=== PATIENT | male | born 1945 | race Caucasian/White ===

== ENCOUNTER 2024-06-17 16:18 | Emergency (ER) | payer MEDICARE, OTHER, SELFPAY ==
[2024-06-17] VITALS (8 sets, daily range): BP systolic 154–184; BP diastolic 90–117; BMI 35.7
[2024-06-17 16:46] LABS: % Basophils 0.3 % (0-2); % Eosinophils 2.4 % (0-6); % Immature Granulocytes 0.4 % (0-0.5); % Lymphocytes 21.7 % (20.5-51.1); % Monocytes 8.9 % (1.7-9.3); % Neutrophils 66.3 % (42.2-75.2); Absolute Basophils 0.1 10^3/uL (0-0.2); Absolute Eosinophils 0.4 10^3/uL (0-0.7); Absolute Immature Granulocytes 0.1 10^3/uL (0-0.05); Absolute Lymphocytes 3.7 10^3/uL (1.2-3.4); Absolute Monocytes 1.5 10^3/uL (0.1-0.6); Absolute Neutrophils 11.3 10^3/uL (1.4-6.5); Hematocrit 42.2 % (39.0-52.0); Hemoglobin 15.1 g/dL (13.0-18.0); Mean Corp Hgb Conc. 35.8 g/dL (33.0-37.0); Mean Corpuscular Hgb 30.1 pg (27.0-31.0); Mean Corpuscular Volume 84.1 fL (80.0-94.0); Mean Platelet Volume 9.5 fL (7.4-10.4); Nucleated Red Blood Cells % 0 % (-); Platelet Count 283 10^3/uL (130-400); Red Blood Cell Count 5.02 10^6/uL (4.70-6.10); Red Cell Dist. Width 12.3 % (11.5-14.5)
[2024-06-17 17:04] LABS: ALT (SGPT) 26 U/L (0-50); AST (SGOT) 26 U/L (17-59); Albumin 4.7 g/dl (3.5-5.0); Alkaline Phosphatase 97 U/L (38-126); Blood Urea Nitrogen 15 mg/dl (9-20); Calcium 9.5 mg/dl (8.4-10.2); Carbon Dioxide 23 mmol/L (22-30); Chloride 103 mmol/L (98-107); Estimated Creatinine Clearance 89 ml/min; Glucose 115 mg/dl (70-99); Potassium 4.3 mmol/L (3.5-5.1); Sodium 136 mmol/L (135-145); Total Bilirubin 1.5 mg/dl (0.2-1.3); Total Protein 7.6 g/dl (6.3-8.2); eGFR > 60.00
[2024-06-17 17:09] LABS: Troponin I < 0.012 ng/ml
[2024-06-17 20:24] LABS: Lipase 121 U/L (23-300)
--- NOTE | 2024-06-17 21:22 | ED.GENMED ---
History of Present Illness
General
Chief Complaint: Blood Pressure Problem
Source: patient
Exam Limitations: none
Time Seen by Provider: 06/17/24 17:53
Nursing documentation reviewed up to this point in time: agreed with
History of Present Illness
History of Present Illness:
Patient presents to ED secondary to persistent bloating sensation and pressure of his abdomen since yesterday afternoon. When his blood pressure was checked at this afternoon, it was noted to be high. Abdominal pain described as pressure,
nonradiating, with intermittent nausea sensation without vomiting. Denies alleviating or exacerbating factors. Denies recent change in diet. Denies recent illness. Denies fever or chills. Denies previous history of similar symptoms. Denies
change in bowel habits.
Past History
Past History
ED Past Medical History: CAD and HTN; Negative Arrthythmia or Asthma
ED Past Surgical History: Cardiac and Orthopedic (knee sx 5 year); Negative Appendectomy, Bowel resection, Brain, Cholecystectomy or
Social History
Tobacco: Former smoker
Alcohol: Occasional
Drug: None
Personal:
Living: with family
Employment: Employed
Family History
Family History: Negative Early CAD
Review of Systems
Review of Systems
Allergies reviewed?: Yes
All Other Systems: ROS reviewed and negative except as documented in HPI and ROS
Constitutional: Reports no symptoms; Denies fever or chills
Respiratory: Reports no symptoms
Cardiac: Reports no symptoms
ABD/GI: Reports abdominal pain and nausea; Denies vomiting or diarrhea
: Reports no symptoms; Denies frequency or flank pain
Musculoskeletal: Reports no symptoms
Skin: Reports no symptoms
Neurological: Reports no symptoms
Phy Exam
Physical Exam
Physical Exam:
Physical Exam
General: no apparent distress, not acutely ill. afebrile
Head: nc/at. eomi
Neck: supple. no meningeal signs.
Heart: s1/s2 regular rate and rhythm, no murmur. equal radial pulses.
Lungs: no acute respiratory distress. clear bilaterally
Abdomen: normal bowel sounds. mild epigastric/RUQ tenderness to palpation, without distention
Neuro: alert and oriented. no focal neurological deficits
Skin: no rash
Psychiatric: well kept. interactive and cooperative
Extremities: no edema. no calf tenderness.
Course
Orders/Labs/Results
Orders:
Orders
06/17/24 16:29
Electrocardiogram (*1) Urgent
Reason for Study: Hypertension, Benign
06/17/24 16:30
EKG- Treatment ONCE
06/17/24 16:41
Complete Blood Count/With Diff Urgent
Comprehensive Metabolic Panel Urgent
Lipase Urgent
Comment: ADD ON
Troponin I Urgent
06/17/24 19:52
Add On- LAB Urgent
Tests Added?: lipase
US Abdomen Complete/Upper Urgent
Comment:
Reason For Exam: RUQ pain
06/17/24 21:47
CT Abd/pelvis W Iv Cont Urgent
Comment:
Reason For Exam: right sided abdominal pain w hematuria
06/17/24 22:57
Ibuprofen [Motrin] 400 mg PO NOW STA
Abnormal Lab Results
06/17/24
16:41
WBC 17.0 H 10^3/uL
(4.8-10.8)
Abs Immat Gran (auto) 0.1 H 10^3/uL
(0-0.05)
Absolute Neuts (auto) 11.3 H 10^3/uL
(1.4-6.5)
Absolute Lymphs (auto) 3.7 H 10^3/uL
(1.2-3.4)
Absolute Monos (auto) 1.5 H 10^3/uL
(0.1-0.6)
Glucose 115 H mg/dl
(70-99)
Total Bilirubin 1.5 H mg/dl
(0.2-1.3)
06/17/24 16:41
06/17/24 16:41
Vital Signs
Initial and Last Documented VS:
Initial Vital Signs
Temp Pulse Resp BP Pulse Ox
98.2 F 89 16 184/117 98
06/17/24 16:25 06/17/24 16:25 06/17/24 16:25 06/17/24 16:25 06/17/24 16:25
Last Documented Vital Signs
Temp Pulse Resp BP Pulse Ox
98.2 F 92 25 161/104 94
06/17/24 16:25 06/17/24 23:15 06/17/24 23:15 06/17/24 23:00 06/17/24 23:15
MDM/Problems Addressed
MDM/Problems Addressed:
Mild leukocytosis noted, without any evidence of focal infection. ? reactive
Abdominal ultrasound as well as CT scan without any acute findings. Patient remains hemodynamically stable, without any acute distress. Patient with nonspecific abdominal pain, i.e. possible gastritis versus mild pancreatitis as noted on CT scan
despite normal blood work. Patient will be discharged home in stable condition, to the care of his family, with recommendation to follow-up with GI/PCP follow-up as an outpatient.
Return to ED with worsening symptoms, i.e. fever/worsening pain/vomiting.
*Critical Care Note
Total Time (30-74mins, 75-104mins- exclusive of procedures): Not Applicable
ED Attending Note
-
Portions of this chart may have been created with voice recognition software.� Occasional wrong word or��sound alike� substitutions may have occurred due to the inherent limitations of voice recognition software.
Discharge Plan
Departure
Patient Disposition: Home (Routine Discharge)
Date of Disposition: 06/17/24
Time of Disposition: 23:15
Patient with high blood pressure during this ER visit?: Yes
Discharge Problem:
Abdominal pain, Hypertension
Instructions: High Blood Pressure (DC), [place] Diet, Abdominal pain in adults - Discharge instructions
Prescriptions:
No Action
atorvastatin 80 MG tablet
80 mg PO QPM Qty: 30 11RF
sucralfate 1 GRAM tablet
1 g PO HS
aspirin 81 MG tablet,delayed release (DR/EC)
81 mg PO DAILY
dicyclomine 20 MG tablet
20 mg PO HS
carvedilol 6.25 MG tablet
6.25 mg PO BID Qty: 60 6RF
amlodipine 10 mg Tablet
10 mg PO DAILY Qty: 30 0RF
pantoprazole 40 mg Tablet,Delayed Release (Dr/Ec)
40 mg PO DAILY Qty: 30 0RF
cefdinir 300 mg Capsule
300 mg PO Q12 Qty: 5 0RF
Referrals:
Deepak Banda MD [Active] -
Barrett Oneill DO [Family Provider] -
Activity Restrictions/Additional Instructions:
As discussed, please follow-up with your primary care physician and/or referred GI physician for further evaluation and treatment. Please consider return to ED with worsening symptoms, i.e. fever/worsening pain/vomiting.
Interventions
Interventions:
*Risk Screen - Suicide Last Done: 06/17/24 17:01
*General Assessment Last Done: 06/17/24 17:01
*Neglect/Abuse Screening Last Done: 06/17/24 17:01
ED- Fall Risk Assessment Last Done: 06/17/24 17:01
*ED COVID-19 Vaccine History Last Done: 06/17/24 17:01
*Nursing Disposition Last Done: 06/17/24 23:37
ED- Cardiac Assessment Last Done: 06/17/24 17:01
ED- Neurological Assessment Last Done: 06/17/24 17:01
ED- Pulmonary Assessment Last Done: 06/17/24 17:01
Discharge Date and Time
Discharge Date/Time: 06/17/24 23:39
Print Language: MONEGASQUE
[2024-06-17] MEDS: MOTRIN 400 MG PO (22:58)
== END 2024-06-17 23:39 | disposition home or self-care (01) ==
LOC: EMR 16:18
PROVIDERS: EMERGENCY PHYSICIAN Emergency Medicine; FAMILY PHYSICIAN Family Medicine
DX: R10.9 Unspecified abdominal pain (principal); I10 Essential (primary) hypertension; Z87.891 Personal history of nicotine dependence
CPT/HCPCS: 99285; 74177; 76700; 80053; 83690; 84484; 85025; 93005; Q9967

== ENCOUNTER 2024-12-31 11:18 | Inpatient (IN) | payer MEDICARE, OTHER, SELFPAY ==
[2024-12-30] VITALS (13 sets, daily range): BP systolic 159–199; BP diastolic 89–137; BMI 34.8
[2024-12-30 17:34] LABS: % Basophils 0.2 % (0-2); % Eosinophils 0.1 % (0-6); % Immature Granulocytes 0.6 % (0-0.5); % Monocytes 10.3 % (1.7-9.3); % Neutrophils 80.8 % (42.2-75.2); Absolute Immature Granulocytes 0.1 10^3/uL (0-0.05); Absolute Lymphocytes 0.9 10^3/uL (1.2-3.4); Absolute Monocytes 1.1 10^3/uL (0.1-0.6); Absolute Neutrophils 8.8 10^3/uL (1.4-6.5); Hematocrit 47.8 % (39.0-52.0); Hemoglobin 16.7 g/dL (13.0-18.0); Mean Corp Hgb Conc. 34.9 g/dL (33.0-37.0); Mean Corpuscular Volume 85.8 fL (80.0-94.0); Mean Platelet Volume 9.2 fL (7.4-10.4); Nucleated Red Blood Cells % 0 % (-); Platelet Count 300 10^3/uL (130-400); Red Blood Cell Count 5.57 10^6/uL (4.70-6.10); Red Cell Dist. Width 12.5 % (11.5-14.5); White Blood Cell Count 10.8 10^3/uL (4.8-10.8)
[2024-12-30 17:53] LABS: Lactic Acid 1.6 mmol/L (0.7-2.0)
[2024-12-30 17:55] LABS: ALT (SGPT) 50 U/L (0-50); AST (SGOT) 35 U/L (17-59); Albumin 5.1 g/dl (3.5-5.0); Alkaline Phosphatase 86 U/L (38-126); Blood Urea Nitrogen 21 mg/dl (9-20); Calcium 8.9 mg/dl (8.4-10.2); Carbon Dioxide 19 mmol/L (22-30); Chloride 100 mmol/L (98-107); Glucose 186 mg/dl (70-99); Lipase 55 U/L (23-300); Potassium 4.1 mmol/L (3.5-5.1); Sodium 137 mmol/L (135-145); Total Bilirubin 1.5 mg/dl (0.2-1.3); Total Protein 8.5 g/dl (6.3-8.2); eGFR > 60.00
[2024-12-30 18:23] LABS: COVID-19 Antigen Negative (Negative)
[2024-12-30] MEDS: NSS 500 IV ×2 (19:06→21:13)
[2024-12-30] MEDS: ZOFRAN 4 MG IV (19:06)
[2024-12-30 19:23] LABS: Lactic Acid 2.1 mmol/L (0.7-2.0)
[2024-12-30 19:36] LABS: Troponin I < 0.012 ng/ml
--- NOTE | 2024-12-30 19:40 | ED.GENMED ---
History of Present Illness
<Vy Boone PA-C - Last Filed: 12/30/24 21:08>
General
Chief Complaint: Blood Pressure Problem
Source: patient
Exam Limitations: none
Time Seen by Provider: 12/30/24 18:18
Nursing documentation reviewed up to this point in time: agreed with
History of Present Illness
History of Present Illness:
pt is a 79 y/o M with h/o HTN, cad, stents, GERD, hiatal hernia, IBS, divrtic
here with nausea/vomiting/diarrhea
started not feeling well around 8 pm last night, a little discomfort in his episgastric region that felt like pressure/nausea
first vomited aroun d8:15 pm and then about 5 times ove rnight
also had 2-3 episodes diarrhea overnight as well
he feels nauseated but mostly just uncomfortable in his abdomen
took his BP and and it was 200/133
pt did not have any BP meds today
he denies headache, visionc hanges
Past History
<SAFIA Beavers Last Filed: 12/30/24 21:08>
Past History
ED Past Medical History: CAD and HTN; Negative Arrthythmia or Asthma
ED Past Surgical History: Cardiac and Orthopedic (knee sx 5 year); Negative Appendectomy, Bowel resection, Brain, Cholecystectomy or
Social History
Tobacco: Former smoker
Alcohol: Occasional
Drug: None
Personal:
Living: with family
Employment: Employed
Family History
Family History: Negative Early CAD
Phy Exam
<SAFIA Beavers Last Filed: 12/30/24 21:08>
Physical Exam
Physical Exam:
GENERAL: Alert , in no apparent distress
EYE: pupils equal and reactive
NECK: Supple
ENT: o/p clr, VERY DRY
CARDIAC: tachycardic, no edema
LUNGS: Clear breath sounds bilaterally, no acute respiratory distress, no wheezes/rales/rhonchi
ABDOMEN: Soft, mild epigastric tenderness;, no r/g, no cvat, normal bowel sounds
reducible umbilical hernia nontendner
NEUROLOGICAL: Alert and oriented, no focal neuro deficits; but seems slightly 'off'
SKIN: Warm and dry, skin intact.
MUSCULOSKELETAL: No edema, well perfused. neg david's sign
PSYCH: Normal and appropriate interaction.
Course
<Vy Boone PA-C - Last Filed: 12/30/24 21:08>
Orders/Labs/Results
Orders:
Orders
12/30/24 17:15
ECG [Electrocardiogram (*1)] Urgent
Reason for Study: Tachycardia
EKG- Treatment ONCE
12/30/24 17:20
COVID-19 Antigen Urgent
Source: Nasal Swab
Complete Blood Count/With Diff Urgent
Comprehensive Metabolic Panel Urgent
Lactic Acid Urgent
Lipase Urgent
Influenza A+B Rapid Molecular Urgent
RADHA Source: Nasal Swab
Specimen Description:
12/30/24 18:42
CT Abd/Pel (IV only)-DH only Urgent
Comment: n/v/d
Reason For Exam: upper abd pain, hypertensive, umbilical hernia
Cardiac Monitoring- Treatment ONCE
0.9% Sodium Chloride 500 ml [Nss] 500 ml IV BOLUS
Ondansetron Injectable [Zofran] 4 mg IV NOW STA
12/30/24 18:56
Lactic Acid Urgent
Troponin I Urgent
12/30/24 19:30
Morphine Sulfate 4 mg IV NOW STA
12/30/24 19:47
Acetaminophen [Tylenol] 650 mg PO NOW STA
12/30/24 21:00
Labetalol HCl [Trandate] 10 mg IV NOW STA
12/30/24 21:03
0.9% Sodium Chloride 500 ml [Nss] 500 ml IV BOLUS
12/30/24 21:41
Admit/Transfer Patient As Directed
Co-Sign Provider:
Level of Care: Observation services
Assign to:: Telemetry
Physician / Group: hospitalist
Diagnosis: hypertensive urgency
Reason for Telemetry: Other
Other Reason for Telemetry: hypertensive urgency
Date to Stop Telemetry: 01/01/25
Time to Stop Telemetry: 11:00
PRN Pain Medication Management As Directed
May give lesser potent ordered pain med per pt: Yes
preference::
Protocol:: Medication orders for pain may be administered in a
manner that supports deferring to patient preference
when the pt is:
- Requesting an ordered lesser potent pain medication.
Least to most potent pain medications are defined
as: acetaminophen < NSAID < tramadol < opioids
(morphine, oxycodone, hydromorphone).
- Requesting a lesser dose of the same medication IF
ORDERED.
- Requesting a less intrusive route of administration
if both routes are prescribed by the provider (PO <
IV).
12/30/24 21:45
Code Status As Directed
Resuscitation Status: Full Code
12/30/24 21:49
Enalaprilat [Vasotec] 1.25 mg IV NOW STA
12/30/24 21:50
Famotidine [Pepcid] 20 mg IV NOW STA
12/30/24 22:00
Flush (0.9% Sodium Chloride) [Flush (Nss)] See Dose Instructions IV PER PROTOCOL
01/01/25 11:00
DC Protocol for Telemetry ONCE
Abnormal Lab Results
12/30/24 12/30/24
17:20 18:56
Abs Immat Gran (auto) 0.1 H 10^3/uL
(0-0.05)
Absolute Neuts (auto) 8.8 H 10^3/uL
(1.4-6.5)
Absolute Lymphs (auto) 0.9 L 10^3/uL
(1.2-3.4)
Absolute Monos (auto) 1.1 H 10^3/uL
(0.1-0.6)
Immature Gran % 0.6 H %
(0-0.5)
Neutrophils % 80.8 H %
(42.2-75.2)
Lymphocytes % 8.0 L %
(20.5-51.1)
Monocytes % 10.3 H %
(1.7-9.3)
Carbon Dioxide 19 L mmol/L
(22-30)
BUN 21 H mg/dl
(9-20)
Glucose 186 H mg/dl
(70-99)
Lactic Acid 2.1 H mmol/L
(0.7-2.0)
Total Bilirubin 1.5 H mg/dl
(0.2-1.3)
Total Protein 8.5 H g/dl
(6.3-8.2)
Albumin 5.1 H g/dl
(3.5-5.0)
12/30/24 17:20
12/30/24 17:20
Vital Signs
Temp: 100.1 F
Initial and Last Documented VS:
Initial Vital Signs
Temp Pulse Resp BP Pulse Ox
97.5 F 119 20 178/133 93
12/30/24 17:11 12/30/24 17:11 12/30/24 17:11 12/30/24 17:11 12/30/24 17:11
Last Documented Vital Signs
Temp Pulse Resp BP Pulse Ox
100.1 F 102 23 125/69 93
12/30/24 20:54 12/31/24 01:00 12/31/24 01:00 12/31/24 01:00 12/31/24 01:00
<Dg Sanabria, - Last Filed: 12/31/24 03:05>
Orders/Labs/Results
Orders:
Orders
12/30/24 17:15
ECG [Electrocardiogram (*1)] Urgent
Reason for Study: Tachycardia
EKG- Treatment ONCE
12/30/24 17:20
COVID-19 Antigen Urgent
Source: Nasal Swab
Complete Blood Count/With Diff Urgent
Comprehensive Metabolic Panel Urgent
Lactic Acid Urgent
Lipase Urgent
Influenza A+B Rapid Molecular Urgent
RADHA Source: Nasal Swab
Specimen Description:
12/30/24 18:42
CT Abd/Pel (IV only)-DH only Urgent
Comment: n/v/d
Reason For Exam: upper abd pain, hypertensive, umbilical hernia
Cardiac Monitoring- Treatment ONCE
0.9% Sodium Chloride 500 ml [Nss] 500 ml IV BOLUS
Ondansetron Injectable [Zofran] 4 mg IV NOW STA
12/30/24 18:56
Lactic Acid Urgent
Troponin I Urgent
12/30/24 19:30
Morphine Sulfate 4 mg IV NOW STA
12/30/24 19:47
Acetaminophen [Tylenol] 650 mg PO NOW STA
12/30/24 21:00
Labetalol HCl [Trandate] 10 mg IV NOW STA
12/30/24 21:03
0.9% Sodium Chloride 500 ml [Nss] 500 ml IV BOLUS
12/30/24 21:41
Admit/Transfer Patient As Directed
Co-Sign Provider:
Level of Care: Observation services
Assign to:: Telemetry
Physician / Group: hospitalist
Diagnosis: hypertensive urgency
Reason for Telemetry: Other
Other Reason for Telemetry: hypertensive urgency
Date to Stop Telemetry: 01/01/25
Time to Stop Telemetry: 11:00
PRN Pain Medication Management As Directed
May give lesser potent ordered pain med per pt: Yes
preference::
Protocol:: Medication orders for pain may be administered in a
manner that supports deferring to patient preference
when the pt is:
- Requesting an ordered lesser potent pain medication.
Least to most potent pain medications are defined
as: acetaminophen < NSAID < tramadol < opioids
(morphine, oxycodone, hydromorphone).
- Requesting a lesser dose of the same medication IF
ORDERED.
- Requesting a less intrusive route of administration
if both routes are prescribed by the provider (PO <
IV).
12/30/24 21:45
Code Status As Directed
Resuscitation Status: Full Code
12/30/24 21:49
Enalaprilat [Vasotec] 1.25 mg IV NOW STA
12/30/24 21:50
Famotidine [Pepcid] 20 mg IV NOW STA
12/30/24 22:00
Flush (0.9% Sodium Chloride) [Flush (Nss)] See Dose Instructions IV PER PROTOCOL
01/01/25 11:00
DC Protocol for Telemetry ONCE
Abnormal Lab Results
12/30/24 12/30/24
17:20 18:56
Abs Immat Gran (auto) 0.1 H 10^3/uL
(0-0.05)
Absolute Neuts (auto) 8.8 H 10^3/uL
(1.4-6.5)
Absolute Lymphs (auto) 0.9 L 10^3/uL
(1.2-3.4)
Absolute Monos (auto) 1.1 H 10^3/uL
(0.1-0.6)
Immature Gran % 0.6 H %
(0-0.5)
Neutrophils % 80.8 H %
(42.2-75.2)
Lymphocytes % 8.0 L %
(20.5-51.1)
Monocytes % 10.3 H %
(1.7-9.3)
Carbon Dioxide 19 L mmol/L
(22-30)
BUN 21 H mg/dl
(9-20)
Glucose 186 H mg/dl
(70-99)
Lactic Acid 2.1 H mmol/L
(0.7-2.0)
Total Bilirubin 1.5 H mg/dl
(0.2-1.3)
Total Protein 8.5 H g/dl
(6.3-8.2)
Albumin 5.1 H g/dl
(3.5-5.0)
12/30/24 17:20
12/30/24 17:20
Vital Signs
Initial and Last Documented VS:
Initial Vital Signs
Temp Pulse Resp BP Pulse Ox
97.5 F 119 20 178/133 93
12/30/24 17:11 12/30/24 17:11 12/30/24 17:11 12/30/24 17:11 12/30/24 17:11
Last Documented Vital Signs
Temp Pulse Resp BP Pulse Ox
100.1 F 102 23 125/69 93
12/30/24 20:54 12/31/24 01:00 12/31/24 01:00 12/31/24 01:00 12/31/24 01:00
<Vy Boone PA-C - Last Filed: 12/30/24 21:08>
MDM/Problems Addressed
Differential Diagnosis Includes:
hypertensive emergency, ileus, bowel obstruction, pancreatitis, AAA, aortic dissection, acs, gallstones, hernia
MDM/Problems Addressed:
79 y/o M
h/o HTN, HLD, cad
with epigastric pain n/v/d since last night
didn't take bp meds today
usually bp is fairly controlled
borderline temp today as well
epigastric 'fullness'
no cp, sob
vmoited x 5
febrile here
seems slightly 'off'
mildly tachy
significantly hypertensive on arrival
slightly better 180/110
hernia umbilical is reducible and nontender
treated his pain but did not improve bp
lactic 2.1
received tylenol and some fluids, added more fluids
CT reviewed, possible ileus vs. enteritis
he had veyr similar admission last year for same thing n/v/d/ and hypertenive urgency; at that time had lactic 7
but also had TME which i think he has mildly here
temp still elevated despite tylenol
will treat BP and admit
<Vy Boone PA-C - Last Filed: 12/30/24 21:08>
*Critical Care Note
Total Time (30-74mins, 75-104mins- exclusive of procedures): Not Applicable
ED Attending Note
<Vy Boone PA-C - Last Filed: 12/30/24 21:08>
-
Portions of this chart may have been created with voice recognition software.� Occasional wrong word or��sound alike� substitutions may have occurred due to the inherent limitations of voice recognition software.
<Dg Sanabria DO - Last Filed: 12/31/24 03:05>
ED Attending Note
I performed the substantive portion of visit, reviewed & personally made and approve the management plan that is documented in note by myself or EVIN.: Yes
Discharge Plan
Departure
Patient Disposition: Admit
Date of Disposition: 12/30/24
Time of Disposition: 20:58
Admit to: Telemetry
Presentation/result/management discussed w/ accepting MD/DO: Hospitalist
Condition: Fair
Covid-19: Not Applicable
Discharge Problem:
Gastroenteritis, Hypertensive urgency
Interventions
Interventions:
*Risk Screen - Suicide Last Done: 12/30/24 18:53
*General Assessment Last Done: 12/30/24 17:11
*Neglect/Abuse Screening Last Done: 12/30/24 18:53
ED- Fall Risk Assessment Last Done: 12/30/24 18:53
*ED COVID-19 Vaccine History Last Done: 12/30/24 18:53
ED- Cardiac Assessment Last Done: 12/30/24 18:53
ED- Neurological Assessment Last Done: 12/30/24 18:53
ED- Pulmonary Assessment Last Done: 12/30/24 18:53
[2024-12-30] MEDS: MORPHINE SULFATE 4 MG IV (19:51)
[2024-12-30] MEDS: TYLENOL 650 MG PO (19:51)
[2024-12-30] MEDS: TRANDATE 10 MG IV (21:07)
--- NOTE | 2024-12-30 21:28 | HPS.HSE ---
Family Physician
-
Family Physician: Barrett Oneill
Chief Complaint
-
Hypertensive urgency
History of Present Illness
This is a 79 y.o male with past medical history significant for CAD status post GA, GERD, hyperlipidemia presenting to the emergency department with 2 days of nausea vomiting and diarrhea and found to have uncontrolled hypertension.
Patient reported acute onset of nausea vomiting starting about 2 days ago. Reported having epigastric pain with associated nausea and vomiting. The vomiting was mostly clear nonbloody and nonbilious. He reports intractable vomiting several times
a day. Denies any headache. Reports temp of 100.4 at home prior to coming to the ED.
Reports only few episodes of diarrhea me that he had a 3 episodes in the morning. Limited p.o. intake due to nausea vomiting. Patient has been unable to take his medications for the last 36 hours due to inability to tolerate any p.o.
Denies any headache. Vision changes, numbness tingling or focal weakness.
In the emergency department he was hypertensive to 180/100, pulse 110 tachycardic to 31 with a temp of 100.1. ECG was unremarkable except for sinus tachycardia and unchanged from prior otherwise. Troponin was negative. CBC was unremarkable.
Electrolytes BUN/creatinine were all within normal range. LFTs were normal. Lipase was normal. Lactic acid was 2.1. CT of the abdomen and pelvis showed enteritis with possible ileus.
Medical History
Past Medical History
Past Medical History: Reports CAD, GERD, HTN and Hypercholesterolemia
Past Surgical History: Reports Orthopedic (Right knee surgery)
Social History
Tobacco: Former Smoker
Alcohol: Occasional (2 pints intermittently )
Drug: None
Personal:
Living: With Family
Employment: Retired
Family History
Family History: Not pertinent
Allergies / Home Medications
Allergies reflects when Allergies were last updated in [facility].
Home Medications with original date entered in [facility]
Allergy/Medication List:
Allergies
Allergy/AdvReac Type Severity Reaction Status Date / Time
amoxicillin [Amoxicillin] Allergy Hives - Verified 12/30/24 17:11
tolerates
cefazolin
Home Medications
atorvastatin 80 mg tablet 80 mg PO QPM ##30 03/13/14
aspirin 81 mg tablet,delayed release 81 mg PO DAILY Blood Clot Prevention/Tx 05/17/16
carvedilol 6.25 mg tablet 6.25 mg PO BID ##60 05/17/16
dicyclomine 20 mg tablet 20 mg PO HS Gastrointestinal Issue 05/17/16
sucralfate 1 gram tablet 1 g PO HS Gastrointestinal Issue 05/17/16
amlodipine 10 mg tablet 10 mg PO DAILY #30 tabs 12/18/23
cefdinir 300 mg capsule 300 mg PO Q12 #5 caps 12/18/23
pantoprazole 40 mg tablet,delayed release 40 mg PO DAILY #30 tabs 12/18/23
Review of Systems
-
History Source: Patient
Constitutional: Reports No Symptoms
EENT: Reports No Symptoms
Respiratory: Reports No Symptoms
Cardiac: Reports No Symptoms
Abdomen/GI: Reports Abdominal Pain, Nausea, Vomiting and Diarrhea
: Reports No Symptoms
Musculoskeletal: Reports No Symptoms
Skin: Reports No Symptoms
Neurological: Reports Weakness
Endocrine: Reports No Symptoms
Hematologic/Lymphatic: Reports No Symptoms
Psych: Reports No Symptoms
Physical Exam
Vital Signs
Vital Signs
Temp Pulse Resp BP Pulse Ox
100.1 F 110 31 199/137 93
12/30/24 20:54 12/30/24 20:30 12/30/24 20:30 12/30/24 21:07 12/30/24 20:30
Physical Exam
General: Well Developed, Well Nourished and Pain
HEENT: NormoCephalic, Anicteric, Moist mucous membranes, Atraumatic, PERRLA and Oxygen
Respiratory: Clear, Non Labored Respirations and Other
Cardiac: S1/S2, Regular Rhythm and Tachycardia
Breast: Deferred by me
GI: Soft, Non Tender and Normal Bowel Sounds
Rectal: Deferred by Provider
Genito-urinary: Deferred by me
Musculoskeletal: No Clubbing, No Cyanosis and No Edema
Skin: Warm
Neuro: AO x 3 and Nonfocal/grossly intact
Hematologic/Lymphatic: No Lymphadenopathy
Psych: Calm
Laboratory Results
-
12/30/24 17:20
12/30/24 17:20
Laboratory Results
Lactic Acid 2.1 mmol/L (0.7-2.0) H 12/30/24 18:56
Total Bilirubin 1.5 mg/dl (0.2-1.3) H 12/30/24 17:20
AST 35 U/L (17-59) 12/30/24 17:20
ALT 50 U/L (0-50) 12/30/24 17:20
Alkaline Phosphatase 86 U/L (38-126) 12/30/24 17:20
Troponin I < 0.012 ng/ml 12/30/24 18:56
Lipase 55 U/L (23-300) 12/30/24 17:20
Data Reviewed
-
CT Scan: Report Reviewed by me
Medical Tests (Nuc Med, Echo, EKG etc): Image Personally Visualized and interpreted
Lab Data: Labs Reviewed by me
Old Records: Reviewed
Impression/Plan
-
IMPRESSION:
79-year-old with likely acute gastroenteritis secondary to viral illness. He has been hypertensive in the setting of not able to tolerate these antihypertensive medications. When I saw the patient he does appear uncomfortable but slightly sleepy
after getting 4 mg of morphine. Remains hypertensive. He is on 2 L of oxygen after the morphine. Lungs are clear. No apparent aspiration on the CT scan.
PLAN:
1. Hypertensive urgency - Suspect secondary to both uncontrolled nausea and lack of medication use due to gastric intolerance.
- admit to telemetry observation for now
- labetolol given in ED, will give combination as below
- metoprolol 5 iv q 6 with hold for jose
- enalapril 1.25 q 6 with hold parameters
- hydralazine 10 prn SBP > 180
- monitor for symptoms
2. Gastroenteritis/possible ileus - Mild dehydration but mostly nausea and dry heaves. Likley viral gastroenteritis
- ondansetron prn for now
- npo except sips and ice chips
- ppi iv daily
- famotidine hs tonight
- pain control with low dose morphine and tylenol as tolerated
- maintanenance fluids with d5 1/2 NS for now
3. Hypoxia - Mild hypoxia. No lung findings on CT to suggest aspiration. Lungs clear. Mild temps of 100.1
- check chest xray
- supplemental oxygen prn
- no cough or wheezing.
DVT PPX - heparin sq
Code status - Full Code
[2024-12-30] MEDS: PEPCID 20 MG IV (22:20)
[2024-12-30] MEDS: FLUSH (NSS) 1 FLUSH IV (22:20)
[2024-12-30] MEDS: VASOTEC 1.25 MG IV (22:20)
[2024-12-31] VITALS (33 sets, daily range): BP systolic 95–139; BP diastolic 54–101
[2024-12-31] MEDS: LR 1000 IV (06:07)
[2024-12-31 06:21] LABS: Hematocrit 44.6 % (39.0-52.0); Hemoglobin 15.1 g/dL (13.0-18.0); Mean Corp Hgb Conc. 33.9 g/dL (33.0-37.0); Mean Corpuscular Volume 88.5 fL (80.0-94.0); Mean Platelet Volume 9.3 fL (7.4-10.4); Platelet Count 260 10^3/uL (130-400); Red Blood Cell Count 5.04 10^6/uL (4.70-6.10); Red Cell Dist. Width 12.9 % (11.5-14.5); White Blood Cell Count 13.3 10^3/uL (4.8-10.8)
[2024-12-31 06:35] LABS: Blood Urea Nitrogen 22 mg/dl (9-20); Carbon Dioxide 24 mmol/L (22-30); Chloride 99 mmol/L (98-107); Estimated Creatinine Clearance 85 ml/min; Glucose 122 mg/dl (70-99); Sodium 134 mmol/L (135-145); eGFR > 60.00
--- NOTE | 2024-12-31 11:07 | W.PN.HOSP.TC ---
Today's Communication/Plan
-
start clear liquids
resume Norvasc at lower dose, but Coreg at usual dose
stop IV scheduled anti-HTN. continue prn Hydralazine
Assessment / Plan
Assessment / Plan
79-year-old with likely acute gastroenteritis secondary to viral illness. Norovirus just resulted positive
PLAN:
1. Hypertensive urgency - Suspect secondary to both uncontrolled nausea and lack of medication use due to gastric intolerance.
- admit to telemetry observation for now
- labetolol given in ED, will give combination as below
- will stop metoprolol 5 iv q 6 and resume usual Coreg dose
- will stop enalapril 1.25 q 6
- hydralazine 10 prn SBP > 180, will continue for now
- monitor for symptoms
resume preadmit Norvasc at reduced dose, now that he is not vomiting
2. Gastroenteritis/possible ileus - Mild dehydration but mostly nausea and dry heaves. Likely viral gastroenteritis, Norovirus induced
- ondansetron prn for now
- start clear liquids
- ppi iv daily
- famotidine hs
- pain control with low dose morphine and tylenol as tolerated
- maintanenance fluids with d5 1/2 NS for now
WBC 10.3-->13.3
Lactic Acid 1.6-->2.1, will recheck
3. Hypoxia - Mild hypoxia. No lung findings on CT to suggest aspiration. Lungs clear. Mild temps of 100.1
- chest xray: [facility]
- supplemental oxygen prn
- no cough or wheezing.
change status to full admit
DVT PPX - heparin sq
Code status - Full Code
Anticipated Discharge: 24 - 48 hours
Subjective/Interval History
-
Date of Service: December 31, 2024
Awake, alert, no further vomiting
Objective Data
-
Labs:
Laboratory Results
12/31/24
05:56
WBC 13.3 H
Hgb 15.1
Hct 44.6
Plt Count 260
Sodium 134 L
Potassium 4.0
Chloride 99
Carbon Dioxide 24
BUN 22 H
Creatinine 0.9
Glucose 122 H
Calcium 8.0 L
Vital Signs:
Vital Signs
Temp Pulse Resp BP Pulse Ox
100.1 F 92 24 139/54 92
12/30/24 20:54 12/31/24 07:45 12/31/24 06:00 12/31/24 07:30 12/31/24 07:30
Review of Systems
-
History Source: Patient and Family ( at bedside)
Constitutional: Reports Fever (100.1)
Respiratory: Reports No Symptoms
Cardiac: Reports No Symptoms
Abdomen/GI: Reports Nausea (better), Vomiting (appears to have reesolved) and Diarrhea (continues)
Genitourinary: Reports No Symptoms
Physical Exam
-
General: Well Developed, Well Nourished and No Apparent Distress
HEENT: Normocephalic, Atraumatic and Moist Mucous Membranes
Respiratory: Clear to Auscultation; Negative Wheezes, Rales or Rhonchi
Cardiac: Regular Rhythm and S1/S2
GI: Soft, Normal Bowel Sounds (active BS), Tender and Distended (mild)
Musculoskeletal: No Clubbing, No Cyanosis and No Edema
Neuro: Awake, Alert and Oriented
--- NOTE | 2024-12-31 12:41 | EDRN ---
Pt checked per his RN request. Pt replaced on hook tender. IV site flushed as IV pump was beeping. IV pump and IV site now fine. Pt complained of no discomfort or pain. Pt watching movie on television. Vital signs taken as pt was off cardiac
monitor.
[2024-12-31] MEDS: NORVASC 5 MG PO (13:05)
[2024-12-31] MEDS: COREG 6.25 MG PO ×2 (13:06→19:10)
[2024-12-31] MEDS: ASPIR LOW (ENTERIC COATED) 81 MG PO (13:07)
[2024-12-31] MEDS: HEPARIN 5000 UNITS SC (13:07)
[2024-12-31] MEDS: PROTONIX IV 40 MG IV (13:08)
[2024-12-31] MEDS: NSS (PRESERVATIVE FREE) 10 ML IV (13:08)
[2024-12-31] MEDS: D5/0.45%NSS with KCL 10 MEQ 1000 IV (17:38)
[2024-12-31] MEDS: HEPARIN SC (19:01)
[2024-12-31] MEDS: LIPITOR 80 MG PO (19:10)
[2025-01-01] VITALS (13 sets, daily range): BP systolic 100–152; BP diastolic 56–84; BMI 33.5
[2025-01-01] MEDS: HEPARIN SC ×2 (01:12→01:14)
[2025-01-01 05:58] LABS: Blood Urea Nitrogen 17 mg/dl (9-20); Calcium 8.2 mg/dl (8.4-10.2); Carbon Dioxide 20 mmol/L (22-30); Chloride 105 mmol/L (98-107); Estimated Creatinine Clearance 85 ml/min; Glucose 108 mg/dl (70-99); Potassium 4.2 mmol/L (3.5-5.1); Sodium 136 mmol/L (135-145); eGFR > 60.00
[2025-01-01 06:26] LABS: Lactic Acid 1.1 mmol/L (0.7-2.0)
[2025-01-01 08:54] LABS: % Basophils 0.3 % (0-2); % Eosinophils 2.1 % (0-6); % Immature Granulocytes 0.1 % (0-0.5); % Lymphocytes 36.4 % (20.5-51.1); % Monocytes 15.9 % (1.7-9.3); % Neutrophils 45.2 % (42.2-75.2); Absolute Eosinophils 0.2 10^3/uL (0-0.7); Absolute Lymphocytes 2.6 10^3/uL (1.2-3.4); Absolute Monocytes 1.1 10^3/uL (0.1-0.6); Absolute Neutrophils 3.2 10^3/uL (1.4-6.5); Hematocrit 42.5 % (39.0-52.0); Hemoglobin 14.3 g/dL (13.0-18.0); Mean Corp Hgb Conc. 33.6 g/dL (33.0-37.0); Mean Corpuscular Hgb 29.9 pg (27.0-31.0); Mean Corpuscular Volume 88.7 fL (80.0-94.0); Mean Platelet Volume 9.4 fL (7.4-10.4); Nucleated Red Blood Cells % 0 % (-); Platelet Count 251 10^3/uL (130-400); Red Blood Cell Count 4.79 10^6/uL (4.70-6.10); Red Cell Dist. Width 13.2 % (11.5-14.5); White Blood Cell Count 7.1 10^3/uL (4.8-10.8)
[2025-01-01] MEDS: NSS (PRESERVATIVE FREE) 10 ML IV (09:11)
[2025-01-01] MEDS: COREG 6.25 MG PO ×2 (09:11→20:13)
[2025-01-01] MEDS: ASPIR LOW (ENTERIC COATED) 81 MG PO (09:11)
[2025-01-01] MEDS: NORVASC 5 MG PO (09:12)
[2025-01-01] MEDS: PROTONIX IV 40 MG IV (09:14)
[2025-01-01] MEDS: HEPARIN 5000 UNITS SC ×3 (09:14→23:07)
[2025-01-01] MEDS: D5/0.45%NSS with KCL 10 MEQ 1000 IV (09:16)
--- NOTE | 2025-01-01 13:03 | W.PN.HOSP.TC ---
Today's Communication/Plan
-
advance diet
discussed with RADHA Celaya, need to confirm correct at home medication list
Assessment / Plan
Assessment / Plan
79-year-old with likely acute gastroenteritis secondary to viral illness. Norovirus just resulted positive
PLAN:
1. Hypertensive urgency - Suspect secondary to both uncontrolled nausea and lack of medication use due to gastric intolerance.
- admit to telemetry observation for now
- labetolol given in ED, will give combination as below
- will stop metoprolol 5 iv q 6 and resume usual Coreg dose
- will stop enalapril 1.25 q 6
- hydralazine 10 prn SBP > 180, will continue for now
- monitor for symptoms
resume preadmit Norvasc at reduced dose, now that he is not vomiting. Pt BP s now fine, but there is a question on exactly what medication he is taking. He does not know, states would know, but she is at home and has developed diarrhea
2. Gastroenteritis/possible ileus - Mild dehydration but mostly nausea and dry heaves. Likely viral gastroenteritis, Norovirus induced
- ondansetron prn for now
- started clear liquids, will advance diet
- ppi iv daily
- famotidine hs
- pain control with low dose morphine and tylenol as tolerated
- slow fluids with d5 1/2 NS for now
WBC 10.3-->13.3-->7.1
Lactic Acid 1.6-->2.1-->1.1
3. Hypoxia - Mild hypoxia. No lung findings on CT to suggest aspiration. Lungs clear. Mild temps of 100.1
- chest xray: [facility]
- supplemental oxygen prn
- no cough or wheezing.
change status to full admit
If tolerates diet and BP remains acceptable, potential dc tomorrow
DVT PPX - heparin sq
Code status - Full Code
Anticipated Discharge: 24 - 48 hours
Subjective/Interval History
-
Date of Service: January 01, 2025
Feeling better, nausea/vomiting resolved, still with liquid stools
Objective Data
-
Labs:
Laboratory Results
01/01/25 01/01/25
05:23 08:42
WBC Cancelled 7.1
Hgb Cancelled 14.3
Hct Cancelled 42.5
Plt Count Cancelled 251
Sodium 136
Potassium 4.2
Chloride 105
Carbon Dioxide 20 L
BUN 17
Creatinine 0.9
Glucose 108 H
Calcium 8.2 L
Vital Signs:
Vital Signs
Temp Pulse Resp BP Pulse Ox
98.0 F 81 18 122/73 95
01/01/25 12:29 01/01/25 12:29 01/01/25 12:29 01/01/25 12:29 01/01/25 12:29
Review of Systems
-
History Source: Patient and Family ( at bedside)
Constitutional: Reports Fever (100.1-->98.0)
Respiratory: Reports No Symptoms
Cardiac: Reports No Symptoms
Abdomen/GI: Reports Nausea (better), Vomiting (appears to have reesolved) and Diarrhea (continues)
Genitourinary: Reports No Symptoms
Physical Exam
-
General: Well Developed, Well Nourished and No Apparent Distress
HEENT: Normocephalic, Atraumatic and Moist Mucous Membranes
Respiratory: Clear to Auscultation; Negative Wheezes, Rales or Rhonchi
Cardiac: Regular Rhythm and S1/S2
GI: Soft, Normal Bowel Sounds (mildly hypoactive BS), Tender and Distended (mild)
Musculoskeletal: No Clubbing, No Cyanosis and No Edema
Neuro: Awake, Alert and Oriented
--- NOTE | 2025-01-01 13:41 | CM ---
Reviewed the chart notes and spoke with the patient at the bedside. Patient admitted for Norovirus. The patient resides with his spouse in a split level home with one step to enter. The patient reports on DME is a cane. The patient has had [facility]
in the past, but no SNF. The patient confirmed his pharmacy of choice is [facility] [address] [place] and PCP is Barrett Oneill. CM continues to be available to patient/family and is monitoring medical plan for needs at discharge.
Plan: Discharge to home when medically stable. No needs identified at this time.
[2025-01-01] MEDS: LIPITOR 80 MG PO (17:18)
[2025-01-01] MEDS: D5/0.45%NSS with KCL 10 MEQ IV (21:10)
[2025-01-02] MEDS: D5/0.45%NSS with KCL 10 MEQ 1000 IV (01:07)
[2025-01-02 07:32] VITALS: BP 158/96
[2025-01-02 07:50] LABS: % Basophils 0.3 % (0-2); % Eosinophils 3.5 % (0-6); % Immature Granulocytes 0.4 % (0-0.5); % Lymphocytes 35.3 % (20.5-51.1); % Monocytes 11.8 % (1.7-9.3); % Neutrophils 48.7 % (42.2-75.2); Absolute Eosinophils 0.2 10^3/uL (0-0.7); Absolute Lymphocytes 2.4 10^3/uL (1.2-3.4); Absolute Monocytes 0.8 10^3/uL (0.1-0.6); Absolute Neutrophils 3.4 10^3/uL (1.4-6.5); Hematocrit 42.8 % (39.0-52.0); Hemoglobin 14.3 g/dL (13.0-18.0); Mean Corp Hgb Conc. 33.4 g/dL (33.0-37.0); Mean Corpuscular Hgb 29.7 pg (27.0-31.0); Mean Platelet Volume 9.3 fL (7.4-10.4); Nucleated Red Blood Cells % 0 % (-); Platelet Count 250 10^3/uL (130-400); Red Blood Cell Count 4.81 10^6/uL (4.70-6.10); Red Cell Dist. Width 12.9 % (11.5-14.5); White Blood Cell Count 6.9 10^3/uL (4.8-10.8)
[2025-01-02 08:27] LABS: Blood Urea Nitrogen 13 mg/dl (9-20); Calcium 8.2 mg/dl (8.4-10.2); Carbon Dioxide 28 mmol/L (22-30); Chloride 103 mmol/L (98-107); Estimated Creatinine Clearance 84 ml/min; Glucose 109 mg/dl (70-99); Potassium 3.6 mmol/L (3.5-5.1); Sodium 141 mmol/L (135-145); eGFR > 60.00
[2025-01-02] MEDS: ASPIR LOW (ENTERIC COATED) 81 MG PO (08:49)
[2025-01-02] MEDS: NSS (PRESERVATIVE FREE) IV ×2 (08:49→09:07)
[2025-01-02] MEDS: NORVASC 5 MG PO (08:49)
[2025-01-02] MEDS: COREG 6.25 MG PO (08:49)
[2025-01-02] MEDS: PROTONIX IV IV ×2 (08:50→09:07)
[2025-01-02] MEDS: HEPARIN 5000 UNITS SC (08:50)
--- NOTE | 2025-01-02 09:26 | W.PN.HOSP.TC ---
Today's Communication/Plan
-
dc to home
Assessment / Plan
Assessment / Plan
79-year-old with likely acute gastroenteritis secondary to viral illness. Norovirus resulted positive
PLAN:
1. Hypertensive urgency - Suspect secondary to both uncontrolled nausea and lack of medication use due to gastric intolerance.
- admit to telemetry observation for now
- labetolol given in ED, will give combination as below
- will stop metoprolol 5 iv q 6 and resume usual Coreg dose
- will stop enalapril 1.25 q 6
- hydralazine 10 prn SBP > 180, will continue for now
- monitor for symptoms
resumed what was thought to be preadmit Norvasc at reduced dose, but apparently pt not taking this medication. Nursing spoke to last evening and confirmed all medication listed correctly. Pt telling me his is feeling better and is no
longer having diarrhea
2. Gastroenteritis/possible ileus - Mild dehydration but mostly nausea and dry heaves. Likely viral gastroenteritis, Norovirus induced. Resolved
- ondansetron prn for now
- tolerating diet
WBC 10.3-->13.3-->7.1-->6.9
Lactic Acid 1.6-->2.1-->1.1
3. Hypoxia - Mild hypoxia. No lung findings on CT to suggest aspiration. Lungs clear. Mild temps of 100.1
- chest xray: [facility]
- resolved, 94% on room air
- no cough or wheezing.
change status to full admit
dc now
see dictated note
More than 30 minutes spent in discharge including
Final examination of the patient
Summarizing hospital stay
Instructions for continuing care to all relevant caregivers
Preparation of discharge records, prescriptions, and referral forms
Total time spent (in minutes): 45
DVT PPX - heparin sq
Code status - Full Code
Anticipated Discharge: Today
Subjective/Interval History
-
Date of Service: January 02, 2025
Feels much better. Nausea resolved, tolerated diet, diarrhea essentially resolved
Objective Data
-
Labs:
Laboratory Results
01/02/25
07:30
WBC 6.9
Hgb 14.3
Hct 42.8
Plt Count 250
Sodium 141
Potassium 3.6
Chloride 103
Carbon Dioxide 28
BUN 13
Creatinine 0.9
Glucose 109 H
Calcium 8.2 L
Vital Signs:
Vital Signs
Temp Pulse Resp BP Pulse Ox
97.3 F 80 16 158/96 94
01/02/25 07:32 01/02/25 08:49 01/02/25 07:32 01/02/25 08:49 01/02/25 07:32
I&O
01/01/25 01/02/25 01/03/25
06:59 06:59 06:59
Intake Total 1200 / 1200
Balance 1200 / 1200
Review of Systems
-
History Source: Patient and Family ( at bedside)
Constitutional: Reports Fever (100.1-->98.0)
Respiratory: Reports No Symptoms
Cardiac: Reports No Symptoms
Abdomen/GI: Reports Diarrhea (almost fully resolved); Denies Nausea (resolved)
Genitourinary: Reports No Symptoms
Physical Exam
-
General: Well Developed, Well Nourished and No Apparent Distress
HEENT: Normocephalic, Atraumatic and Moist Mucous Membranes
Respiratory: Clear to Auscultation; Negative Wheezes, Rales or Rhonchi
Cardiac: Regular Rhythm and S1/S2
GI: Soft, Nontender, Nondistended and Normal Bowel Sounds
Musculoskeletal: No Clubbing, No Cyanosis and No Edema
Neuro: Awake, Alert and Oriented
[2025-01-02 09:27] LABS: Glycohemoglobin (HgbA1c) 6.3 % (4.0-5.6)
--- NOTE | 2025-01-02 09:41 | W.DS.TRANS ---
DC Summary - Joint Finisher
-
Discharge Instructions:
Discharge Diagnosis/Procedures Acute Norovirus
Diet Low Residue
Additional Diets easy to digest
Activity No strenuous activity
Driving Restrictions No driving for 24 hours
Bathing Restrictions None
Blood Work CBC, CMP in 1-2 weeks
Instructions:
Stand-Alone Forms:
Changes to Home Medications: Yes
Discharge Medications:
DC Medications w/original date entered in [facility]
atorvastatin 80 mg tablet 80 mg PO QPM ##30 03/13/14
aspirin 81 mg tablet,delayed release 81 mg PO DAILY Blood Clot Prevention/Tx 05/17/16
carvedilol 6.25 mg tablet 6.25 mg PO BID ##60 05/17/16
dicyclomine 20 mg tablet 20 mg PO HS Gastrointestinal Issue 05/17/16
sucralfate 1 gram tablet 1 g PO HS Gastrointestinal Issue 05/17/16
bisacodyl 5 mg tablet,delayed release (Dulcolax (bisacodyl)) 5 mg PO HS PRN constipation 12/31/24
coenzyme Q10 100 mg capsule (Co Q-10) 100 mg PO DAILY 12/31/24
cyanocobalamin (vitamin B-12) 1,000 mcg tablet (Vitamin B-12) 1,000 mcg PO DAILY 12/31/24
lisinopril 20 mg tablet 20 mg PO DAILY 12/31/24
loratadine 10 mg tablet (Claritin) 10 mg PO DAILY PRN allergies 12/31/24
omeprazole 20 mg capsule,delayed release 20 mg PO DAILY 12/31/24
sildenafil 100 mg tablet 100 mg PO DAILY PRN erectile dysfunction 12/31/24
carvedilol 6.25 mg tablet 6.25 mg PO BID #0 tabs 01/02/25
Home Medication Changes
stop Advil/Naproxyn until labs rechecked
Pending Results: No
--- NOTE | 2025-01-02 10:04 | CM ---
Patient spoke with CM via phone and provided IMM for patient to review, Patient stated he has no questions and is eager to go home at this time. Patient here for transportation. CM will continue to follow for discharge planning needs.
Plan; discharge home today with no needs.
== END 2025-01-02 11:40 | disposition home or self-care (01) | DRG 392 ==
LOC: 2 NORTH 11:18
PROVIDERS: Physician Assistant; Student in an Organized Health Care Education/Training Program; ADMITTING PHYSICIAN Internal Medicine; ATTENDING PHYSICIAN Internal Medicine; EMERGENCY PHYSICIAN Emergency Medicine; FAMILY PHYSICIAN Family Medicine
DX: A08.11 Acute gastroenteropathy due to Norwalk agent (principal); K56.7 Ileus, unspecified; E78.00 Pure hypercholesterolemia, unspecified; I10 Essential (primary) hypertension; I16.0 Hypertensive urgency; I25.10 Atherosclerotic heart disease of native coronary artery without angina pectoris; I25.2 Old myocardial infarction; K21.9 Gastro-esophageal reflux disease without esophagitis; T46.5X6A Underdosing of other antihypertensive drugs, initial encounter; R09.02 Hypoxemia; Z87.891 Personal history of nicotine dependence; Z88.0 Allergy status to penicillin; Z79.82 Long term (current) use of aspirin; Z79.899 Other long term (current) drug therapy; Z91.138 Patient's unintentional underdosing of medication regimen for other reason; Z11.52 Encounter for screening for COVID-19
CPT/HCPCS: 71046; 74177; 80048; 80053; 83036; 83605; 83690; 84484; 85025; 85027; 87045; 87046; 87324; 87427; 87449; 87502; 87798; 87811; 89055; 93005; 96361; 96374; 96375; 99285; J3480; Q9967